=== PATIENT | female | born 1965 | race Caucasian/White ===

== ENCOUNTER 2020-07-05 13:04 | Outpatient (CLI) | payer MEDICARE, MEDICAID, SELFPAY ==
--- NOTE | ~2020-07-05 | CT_ITS ---
EXAMINATION: CT lung screening DATE: 07/05/2020 13:28 INDICATION: Personal history of nicotine dependence, prior smoker with 77 pack year history TECHNIQUE: Computed tomography (CT) of the chest was performed without intravenous contrast. The dose -length product (DLP) was 61.85 mGy-cm. Automated exposure control and iterative reconstruction techn [employer] were employed. COMPARISON: 01/03/2016 FINDINGS: There is moderate emphysema. Stable pulmonary nodules measure up to 3 mm in the right upper lobe, consistent with old granulomatous disease. No new or suspicious pulmonary nodules are identifi ed. The lungs are free of acute opacities. There is no pleural effusion or pneumothorax. Mild atelect asis is present in the lower lobes and right middle lobe. No pathologically enlarged thoracic lymph n odes are identified. The heart size is normal. The gallbladder is surgically absent. Minimal pneumobi stephanie is noted, likely related to prior earlier intervention. There is mild thoracic spondylosis. IMPRESSION: 1. Lung-RADS category 2: Benign appearance or behavior. Continue annual screening with noncontrast lo w-dose chest CT in 12 months. Reviewed, dictated and finalized at location A. IMPRESSION: 1. Lung-RADS category 2: Benign appearance or behavior. Continue annual screeni ng with noncontrast low-dose chest CT in 12 months.
== END 2020-07-05 13:05 | disposition home or self-care (01) ==
LOC: ANHIMG 13:08
PROVIDERS: PCP Emergency Medicine; Visit Provider Emergency Medicine
DX: J43.9 Emphysema, unspecified (principal); Z87.891 Personal history of nicotine dependence
CPT/HCPCS: G0297

== ENCOUNTER 2021-07-16 10:56 | Outpatient (CLI) | payer MEDICARE, MEDICAID, SELFPAY ==
--- NOTE | ~2021-07-16 | CT_ITS ---
EXAMINATION: CT diagnostic chest wo con DATE: 07/16/2021 11:21 INDICATION: Iron deficiency anemia due to sideropenic dysphagia TECHNIQUE: Computed tomography (CT) of the chest was performed without intravenous contrast. The dose -length product (DLP) was 130.64 mGy-cm. Automated exposure control and iterative reconstruction tech [employer] were employed. COMPARISON: 07/05/2020 FINDINGS: There is moderate emphysema. There is atelectasis of the lower lobes and right middle lobe. No focal airspace opacities are identified. There is no pleural effusion or pneumothorax. There are stable pulmonary nodules measuring up to 3 mm, consistent with old granulomatous disease. No patholog ically enlarged thoracic lymph nodes are identified. The heart size is normal. Chronic pneumobilia is noted. The nondistended esophagus is unremarkable.. The gallbladder is surgically absent. There is m ild thoracic spondylosis. IMPRESSION: 1. Moderate emphysema. Reviewed, dictated and finalized at location A. IMPRESSION: 1. Moderate emphysema.
== END 2021-07-16 10:57 | disposition home or self-care (01) ==
LOC: ANHIMG 11:02
PROVIDERS: PCP Internal Medicine; Visit Provider Internal Medicine
DX: D50.1 Sideropenic dysphagia (principal); E53.8 Deficiency of other specified B group vitamins; R53.1 Weakness; J43.9 Emphysema, unspecified
CPT/HCPCS: 71250

== ENCOUNTER 2021-08-01 14:29 | Outpatient (CLI) | payer MEDICARE, MEDICAID, SELFPAY ==
--- NOTE | ~2021-08-01 | MM_ITS ---
EXAMINATION: MM screening kenzie BI w rei HISTORY: Screening mammogram TECHNIQUE: Craniocaudal and mediolateral oblique 3-D tomosynthesis images were obtained and synthetic 2-D images were generated. CAD analysis was submitted and interpreted. COMPARISON: 02/21/2016 bilateral screening mammogram BREAST PARENCHYMAL COMPOSITION: The breasts are heterogeneously dense, which may obscure small masses . FINDINGS: History of prior benign left breast biopsy; a biopsy marker is present posteriorly in the u pper outer left breast. There are bilateral mammographic asymmetries. Bilateral diagnostic mammography is recommended, with u ltrasound if required. IMPRESSION: 1. Bilateral mammographic asymmetries 2. Bilateral diagnostic mammography is recommended, with ultrasound if required BI-RADS Category 0: Incomplete: Needs additional imaging evaluation. Reviewed, dictated and finalized at location A. R TAXI DRIVER
== END 2021-08-01 14:30 | disposition home or self-care (01) ==
LOC: ANHIMG 14:32
PROVIDERS: PCP Internal Medicine; Visit Provider Internal Medicine
DX: Z12.31 Encounter for screening mammogram for malignant neoplasm of breast (principal); R92.8 Other abnormal and inconclusive findings on diagnostic imaging of breast
CPT/HCPCS: 77063; 77067

== ENCOUNTER 2021-08-22 13:08 | Outpatient (CLI) | payer MEDICARE, MEDICAID, SELFPAY ==
--- NOTE | ~2021-08-22 | MMUS_ITS ---
EXAMINATION: MM diagnostic kenzie BI w rei, US breast BI complete HISTORY: Bilateral mammographic asymmetries reported on 08/01/2021 screening mammogram TECHNIQUE: Additional 3-D tomosynthesis images of both breasts were performed and synthetic 2-D image s were generated. CAD analysis was submitted and interpreted. High resolution complete bilateral dustin st ultrasound including all 4 quadrants and subareolar areas was performed. COMPARISON: 08/01/2021 bilateral screening mammogram 02/21/2016 bilateral digital screening mammogram 03/27/2015 diagnostic left mammogram and complete left breast ultrasound examination BREAST PARENCHYMAL COMPOSITION: The breasts are heterogeneously dense, which may obscure small masses . FINDINGS: MAMMOGRAPHIC FINDINGS: A circumscribed approximately 2.2 x 3.5 cm mass with halo sign is noted posteriorly in the upper oute r left breast. The mammographic features are benign. There is a biopsy marker nearby and history of p rior benign left breast biopsy. An adjacent upper outer quadrant left breast masses may be present. The heterogeneous dense stroma ma y obscure masses in either breast. Bilateral ultrasound correlation was obtained. No suspicious mass, architectural distortion, malignant calcification, skin thickening or retraction of either breast is noted otherwise. ULTRASOUND: Left breast: 2:00 3-8 centimeters from nipple: There is a parallel circumscribed heterogeneous mixed solid and fat ty mass measuring up to 4.2 x 8.4 x 20 mm, likely a benign hamartoma. Otherwise no suspicious mass or shadowing of either breast is noted. IMPRESSION: 1. Chronic benign-appearing mass of left breast at 2:00, likely a benign hamartoma 2. Routine mammographic screening is recommended BI-RADS Category 2: Benign finding(s). Reviewed, dictated and finalized at location A. R SAW OPERATOR IMPRESSION: 1. Chronic benign-appearing mass of left breast at 2:00, likely a benign hamart michael 2. Routine mammographic screening is recommended BI-RADS Category 2: Benign finding(s).
== END 2021-08-22 13:09 | disposition home or self-care (01) ==
LOC: ANHIMG 13:10
PROVIDERS: PCP Internal Medicine; Visit Provider Internal Medicine
DX: R92.2 Inconclusive mammogram (principal)
CPT/HCPCS: 76641; 77062; 77066; G0279